=== PATIENT | female | born 2000 | race Caucasian/White ===

== ENCOUNTER 2021-07-11 07:42 | Emergency (ER) | payer MEDICAID ==
[~2021-07-11] VITALS: Ht 160 cm; Wt 49.0 kg
[2021-07-11] MEDS ORDERED: ALUM & MAG HYDROX-SIMETH LIQ(MAALOX) 30 ML PO ONE (08:15)
[2021-07-11] MEDS ORDERED: FAMOTIDINE (10MG/ML) 2ML VL IV ONE (08:15)
[2021-07-11] MEDS ORDERED: ONDANSETRON HCL 4 MG/2 ML VIAL IV ONE (08:15)
[2021-07-11 08:40] LABS: Urine Bacteria NONE SEEN /hpf (None Seen); Urine Blood 1+ /uL (Negative); Urine Mucus FEW (None Seen); Urine Specific Gravity 1.027 (1.001-1.035); Urine WBC 23 /hpf (0 - 5)
[2021-07-11 09:19] LABS: Basophils # (auto) 0.1 10 ^3/uL (0-0.2); Basophils % (auto) 1.2 % (0.0-2.0); Eosinophils # (auto) 0 10 ^3/uL (0-0.8); Eosinophils % (auto) 0.1 % (0.0-7.0); Hemoglobin 13.8 g/dL (12.2-16.2); Lymphocytes # (auto) 1.4 10 ^3/uL (0.4-5.4); Lymphocytes % (auto) 13.5 % (10.0-50.0); Mean Corpuscular Hemoglobin 32.6 pg (28.0-32.0); Mean Corpuscular Hgb Conc. 35.4 g/dL (32.0-36.0); Monocytes # (auto) 0.5 10 ^3/uL (0-1.3); Monocytes % (auto) 5.4 % (0.0-12.0); Neutrophils # (auto) 8.1 10 ^3/uL (1.6-8.6); Neutrophils % (auto) 79.8 % (37.0-80.0); Red Blood Cells 4.24 10^6/uL (4.0-5.20); Red Cell Distribution Width 12.5 % (11.8-14.3); White Blood Cell 10.1 10^3/uL (4.4-10.8)
[2021-07-11 09:40] LABS: Albumin 3.7 g/dL (3.4-5.0); BUN/Creatinine Ratio 9.3; Calcium 8.5 mg/dL (8.5-10.1); Potassium 3.9 mmol/L (3.5-5.1)
[2021-07-11 09:42] LABS: Bilirubin, Total 0.3 mg/dL (0.2-1.0); Total Protein 7.3 g/dL (6.4-8.2)
[2021-07-11 10:47] LABS: Magnesium 2.4 mg/dL (1.6-2.6)
[2021-07-11 16:00] VITALS: BP 112/62
== END 2021-07-11 16:15 | disposition home or self-care (01) ==
LOC: ER 07:42
DX: O23.41 Unspecified infection of urinary tract in pregnancy, first trimester (principal); N39.0 Urinary tract infection, site not specified; Z3A.01 Less than 8 weeks gestation of pregnancy
CPT/HCPCS: 36415; 76801; 76817; 80053; 81001; 81025; 82010; 83690; 83735; 84702; 85025; 86850; 86900; 86901; 96374; 96375; 99284; J2405; J3490

== ENCOUNTER 2023-09-04 14:51 | Emergency (ER) | payer MEDICAID ==
[~2023-09-04] VITALS: Ht 160 cm; Wt 49.0 kg
[2023-09-04 15:50] LABS: Urine Bacteria FEW /hpf (None Seen); Urine Blood 1+ /uL (Negative); Urine Clarity Turbid (Clear); Urine Color Yellow (Yellow); Urine Mucus FEW (None Seen); Urine Protein, UAD TRACE (Negative); Urine Specific Gravity 1.028 (1.001-1.035); Urine Urobilinogen Normal (Negative); Urine WBC 11 /hpf (0 - 5); Urine pH 6.5 (5.0-9.0)
[2023-09-04 16:42] LABS: Vaginal Bacteria Few; Vaginal Clue Cells Few; Vaginal Epithelial Cells Many; Vaginal Trichomonas Not Present
[2023-09-04] MEDS ORDERED: NAPR-746 PO (16:48)
[2023-09-04] MEDS ORDERED: ACYC400T16 PO (16:48)
[2023-09-04 16:56] VITALS: BP 107/64; PULSE 73; RESP 18; TEMP 98.2; O2SAT 98
== END 2023-09-04 16:58 | disposition home or self-care (01) ==
LOC: ER 14:51
DX: A60.00 Herpesviral infection of urogenital system, unspecified (principal)
CPT/HCPCS: 81001; 81025; 87210